=== PATIENT | female | born 1955 | race Caucasian/White ===

== ENCOUNTER 2022-01-25 08:56 | Outpatient (CLI) | payer MEDICAID, SELFPAY ==
--- NOTE | 2022-01-25 09:15 | CRLHL7_ITS ---
For Patients: As a result of the Century Cures Act, medical imaging exams and procedure reports are released immediately into your electronic medical record. You may view this report before your referring provider. If you have questions, please contact your health care provider. INDICATION: CHRONIC PAIN OF LEFT KNEE COMPARISON: None available TECHNIQUE: A duplex venous ultrasound exam was performed of the left lower extremity using stauffer scale imaging, color Doppler and spectral Doppler analysis. Pre- and post compression images were obtained per site specific protocol. The size of the superficial veins were recorded, along with reflux times if applicable. FINDINGS: In the left lower extremity deep venous system, there is normal compressibility, color Doppler venous blood flow and augmentation within the common femoral vein, superficial femoral vein, popliteal vein, and posterior tibial veins. The greater and lesser saphenous veins of the left lower extremity are also patent and compressible with intact color Doppler venous blood flow. The greater saphenous vein measures 0.8 cm at the saphenofemoral junction where it is competent. The greater saphenous vein is competent throughout the thigh and calf. The lesser saphenous vein is competent throughout. The saphenopopliteal junction is identified. Incidental competent rehabilitation liaison veins are present within the mid and proximal calf. IMPRESSION: 1. No deep or superficial venous thrombosis. 2. No venous insufficiency in the left lower extremity. Dictated by Jovanni Dhaliwal MD @ 01/25/2022 10:23:23 AM (Electronically Signed)
== END 2022-01-25 08:57 | disposition home or self-care (01) ==
PROVIDERS: PCP Physician Assistant Medical; Visit Provider Family Medicine
DX: M25.562 Pain in left knee (principal)
CPT/HCPCS: 93971

== ENCOUNTER 2022-02-16 08:30 | Outpatient (RCR) | payer MEDICAID, SELFPAY | END 2022-02-16 10:35 | disposition home or self-care (01) | PROVIDERS: Visit Provider Physician Assistant Medical | DX: M25.562 Pain in left knee (principal); Z51.89 Encounter for other specified aftercare | CPT/HCPCS: 97110; 97112; 97140; 97161 ==

== ENCOUNTER 2023-11-14 22:42 | Observation (INO) | payer MEDICARE, BC, SELFPAY ==
[2023-11-14 22:47] VITALS: BP 190/108; PULSE 86; RESP 18; TEMP 36.2; O2SAT 97; BMI 45.1
--- NOTE | 2023-11-14 23:06 | ED.GENADULT ---
HPI - General Adult General Time Seen by Provider: 02:00 Date Seen: 11/14/23 Chief complaint: Headache/Migraine Stated complaint: nauseous pain on right side of head Time Seen by Provider: 11/14/23 23:06 Source: patient, family and RN notes reviewed Mode of arrival: ambulatory Limitations: no limitations History of Present Illness HPI narrative: Patient is a very pleasant 68-year-old female with a history of normal eye exam earlier today, depression who comes to the emergency room with her daughter for evaluation regarding sudden onset of right-sided headache. Patient has no history of migraines in the past and has not had any recent trauma. At approximately 2130 hours tonight she had the sudden onset of pain in her right denominational and right forehead. It was rated at 10/10 and associated with vomiting and photophobia. Patient notes that since that time pain is now radiating behind her eye onto her right cheek and into her upper neck. She had vomiting here in the ED. she denies history of migraines, recent trauma, recent illnesses. She had been at the eye doctor as she had had redness in her left eye/blood that I believe they are describing as a subconjunctival hemorrhage on October 26. Today was a follow-up day and everything looked okay. She did have her eyes dilated according to family members. She initially describes blurriness of vision both eyes when she arrives but later states that the blurriness is only in her right eye. She denies numbness or tingling of the extremities chest pain shortness of breath recent cough cold or fever. She is not on blood thinners according to her daughter. Patient does have a history of a left mastoid surgery. Her daughter states that she had vertigo and had surgery for that. Do not have any records for her. Review of Systems Status of ROS: Reports: 10 or more systems reviewed and unremarkable except as noted in History and below Narrative: Challenging given language barrier but daughter is very helpful. Const: Denies: fever Eyes: Reports: change in vision, blurry vision and light sensitivity; Denies: blind spots or eye discomfort ENMT: Denies: throat pain Cardio: Denies: chest pain or shortness of breath with exertion Resp: Denies: shortness of breath GI: Reports: nausea and vomiting PFSH PFSH Social History Smoking Status: Never smoker Non-prescribed substance use: denies use service: No Exam Narrative: Exam Narrative: Patient is alert and oriented in significant distress holding her head and complaining of pain. She also is retching occasionally. EOM is full and pupils are equal. Face is symmetrical. Smile is intact. Neck is supple. Heart with a regular rate and rhythm and lungs are clear bilaterally. Abdomen is obese soft nontender. She is moving all of her extremities. After pain medications and CT CTA I do go back for more intense examination. At this time I note that her right pupil is larger than the left. Left pupil is approximately 3.5 mm and constricts to 1.5 mm. Right pupil however is approximately 5 mm. There is a slight reaction with direct light to 4 mm but no indirect response. Did attempt measuring pressures and pressures on the right are 22 repeat 23. Pressure on the left eye is 15. Examination of the fundus notes vessels easily seen. They do not appear to be abnormal. No other abnormalities noted of the optic disc. Attempts at visual calvillo challenging as the patient is sleepy. However we were able to ascertain that she is able to see peripheral fingers and visual calvillo do appear to be intact. Const: Vital Signs, click to edit/add: Vital Signs - 24 hr 11/14/23 22:47 11/15/23 00:09 11/15/23 00:11 Temperature 97.2 F L Pulse Rate 86 80 Pulse Rate [Left P ulse Oximeter] 86 Respiratory Rate 18 Blood Pressure 175/96 H Blood Pressure [Ri ght Upper Arm] 190/108 H Pulse Oximetry 97 92 90 Oxygen Delivery Me od Room Air 11/15/23 00:15 11/15/23 00:16 11/15/23 00:32 Temperature Pulse Rate 84 82 Pulse Rate [Left P ulse Oximeter] Respiratory Rate Blood Pressure 160/94 H 169/100 H Blood Pressure [Ri ght Upper Arm] Pulse Oximetry 91 90 Oxygen Delivery Tn thod 11/15/23 00:47 11/15/23 00:48 11/15/23 01:00 Temperature Pulse Rate 83 83 84 Pulse Rate [Left P ulse Oximeter] Respiratory Rate Blood Pressure 163/93 H Blood Pressure [Ri ght Upper Arm] Pulse Oximetry 99 100 [facility] 01[facility]01 11/15/23 01:15 11/15/23 01:16 Temperature Pulse Rate 85 81 84 Pulse Rate [Left P ulse Oximeter] Respiratory Rate Blood Pressure 173/98 H 159/97 H Blood Pressure [Ri ght Upper Arm] Pulse Oximetry 99 99 99 Oxygen Delivery Me thod 11/15/23 01:17 11/15/23 01:30 11/15/23 01:31 Temperature Pulse Rate 81 85 84 Pulse Rate [Left P ulse Oximeter] Respiratory Rate Blood Pressure 145/84 H Blood Pressure [Ri ght Upper Arm] Pulse Oximetry 99 99 99 Oxygen Delivery Me thod 11/15/23 01:45 11/15/23 01:46 11/15/23 02:00 Temperature Pulse Rate 82 83 81 Pulse Rate [Left P ulse Oximeter] Respiratory Rate Blood Pressure 139/77 Blood Pressure [Ri ght Upper Arm] Pulse Oximetry 99 99 99 Oxygen Delivery Me thod 11/15/23 02:01 11/15/23 02:15 Temperature Pulse Rate 89 79 Pulse Rate [Left P ulse Oximeter] Respiratory Rate Blood Pressure 140/85 H Blood Pressure [Ri ght Upper Arm] Pulse Oximetry 99 99 Oxygen Delivery Me thod Documenting provider has reviewed patient's vital signs: yes Eye: Direct Ophthalmoscopy: photophobia Course Course ED Course: Patient's presentation very concerning for subarachnoid hemorrhage verses carotid dissection. Other possibilities do include glaucoma, stroke, migraine, temporal arteritis. Patient has no globe pain but did note pain behind her eye. We did use my morphine 4 mg Zofran [address] as she was nauseated with significant 10/10 pain. She was able to tolerate CT but continued to vomit and we consequently gave 0.5 mg of Ativan. Unfortunately she continued to have vomiting although her pain was gone. She was given Phenergan 12.5 mg and this seemed to help for a while but now pain has returned. I was able to be in contact with Dr. Fischer neurologist after the initial head CT and then spoke again regarding the persistent vomiting. Dr. Fischer was able to look at the CT herself did not note any abnormalities and felt this was possibly a migraine. Did suggest use of a migraine cocktail such as Toradol Reglan and Benadryl. Given the fact that she has already received Phenergan I have ordered Toradol and Benadryl. She continues to deny any pain at this time. Vital Signs Vital signs: Initial Vital Signs Temperature 97.2 F L 11/14/23 22:47 Temperature Source Temporal Artery Scan 11/14/23 22:47 Pulse Rate 86 11/14/23 22:47 Pulse Rhythm Regular 11/14/23 22:47 Respiratory Rate 18 11/14/23 22:47 Blood Pressure 190/108 H 11/14/23 22:47 Blood Pressure Mean 135 H 11/14/23 22:47 Blood Pressure Position Sitting 11/14/23 22:47 Pulse Oximetry 97 11/14/23 22:47 Oxygen Delivery Method Room Air 11/14/23 22:47 Vital Signs Temperature 97.2 F L 11/14/23 22:47 Pulse Rate 86 11/14/23 22:47 Respiratory Rate 18 11/14/23 22:47 Blood Pressure 190/108 H 11/14/23 22:47 Pulse Oximetry 97 11/14/23 22:47 Oxygen Delivery Method Room Air 11/14/23 22:47 Temperature 97.2 F L 11/14/23 22:47 Pulse Rate 79 11/15/23 02:15 Respiratory Rate 18 11/14/23 22:47 Blood Pressure 140/85 H 11/15/23 02:01 Pulse Oximetry 99 11/15/23 02:15 Oxygen Delivery Method Room Air 11/14/23 22:47 Medications Administered Medications: Discontinued Medications Generic Name Dose Route Start Last Admin Trade Name Freq PRN Reason Stop Dose Admin Diphenhydramine HCl 12.5 mg 11/15/23 01:02 11/15/23 01:03 Diphenhydramine 50 Mg/Ml Inj IVP 11/15/23 01:03 12.5 mg ONCE ONE Administration Ketorolac Tromethamine 15 mg 11/15/23 01:02 11/15/23 01:03 Ketorolac 15 Mg/Ml Inj IVP 11/15/23 01:03 15 mg ONCE ONE Administration Lorazepam 0.5 mg 11/14/23 23:54 11/14/23 23:45 Lorazepam 2 Mg/Ml Inj IVP 11/14/23 23:55 0.5 mg ONCE ONE Administration Morphine Sulfate 4 mg 11/14/23 23:07 11/14/23 23:10 Morphine 4 Mg/Ml Inj IVP 11/14/23 23:08 4 mg ONCE ONE Administration Ondansetron HCl 4 mg 11/14/23 23:07 11/14/23 23:10 Ondansetron 2 Mg/Ml Inj IVP 11/14/23 23:08 4 mg ONCE ONE Administration Promethazine HCl 12.5 mg 11/15/23 00:14 11/15/23 00:15 Promethazine 25 Mg/Ml Inj IVP 11/15/23 00:15 12.5 mg ONCE ONE Administration Medical Decision Making MDM Narrative Medical decision making narrative: 1. Headache-at this time have ruled out subarachnoid hemorrhage, carotid dissection, temporal arteritis as sed rate is 8 and her eye pressures appear to be normal. Patient has received morphine, Benadryl, Zofran, Ativan, Phenergan and fluids. Pain has dissipated at this time. There is no rash on her phase to suggest shingles. 2. Asymmetric pupils-patient noted to have pupil pupil asymmetry not noted when she 1st arrived. In fact pupils appeared to be equal on a quick exam prior to the CT. Pressures appear to be normal at this time. Patient's pain has resolved and thus I do not think we are dealing with glaucoma and she did not have pain in the globe. Neurology suggests overnight monitoring with MR Eli of the brain tomorrow. While challenging to obtain visual calvillo, they are intact. 3. Persistent vomiting-certainly could initially had been secondary to migraine and possibly worsened because of the morphine. Phenergan seems to help the most. Continuing to monitor. Did follow up with Toradol and Benadryl for suspicion of migraine and patient is now resting comfortably. 4. Hypertension-blood pressure initially 190 systolic upon arrival has improved to 139 systolic at this time. 5. Disposition-admit under the care of [facility] hospitalist, Dr. Castillo. Lab Data Lab results reviewed: Yes I reviewed the patient's lab results Labs: Lab Results 11/14/23 11/14/23 Range/Units 23:10 23:55 WBC 7.00 (4.50-11.00) K/uL RBC 4.66 (4.00-5.20) m/uL Hgb 14.2 (12.0-16.0) gm/dL Hct 43.0 (33.0-51.0) % MCV 92 (80-100) fL MCH 31 (26-34) pg MCHC 33 (32-36) gm/dL RDW Coeff of Pamela 11.9 (11.5-15.5) % Plt Count 323 (140-440) K/uL Neut % (Auto) 40.5 L (42.0-72.0) % Lymph % (Auto) 49.1 H (20-44) % Dodge % (Auto) 8.1 (0.0-11.0) % Eos % (Auto) 1.9 (0.0-7.0) % Baso % (Auto) 0.3 (0.0-3.0) % Neut # (Auto) 2.80 (1.7-7.0) K/uL Lymph # (Auto) 3.40 H (0.90-2.90) K/uL Dodge # (Auto) 0.60 (0.00-0.90) K/UL Eos # (Auto) 0.13 (0.00-0.50) K/uL Baso # (Auto) 0.02 (0.00-0.30) K/uL Abs Immat Gran (auto) 0.01 (0.00-0.30) K/uL Imm/Tot Granulo (auto) 0.1 % ESR 8 (2-20) mm/hr INR 0.87 L (0.91-1.10) Sodium 139 (135-149) mmol/L Potassium 3.7 (3.6-5.1) mmol/L Chloride 104 (96-114) mmol/L Carbon Dioxide 26 (20-32) mmol/L Anion Gap 9 (7-15) mEq/L BUN 13 (7-30) mg/dL Creatinine 0.6 (0.5-1.5) mg/dL Estimated Creat Clear 39.75 Estimated GFR 99 ml/min Glucose 130 H (60-115) mg/dL Calcium 9.0 (8.4-10.6) mg/dL Total Bilirubin 0.7 (0.1-1.5) mg/dL AST 31 (12-35) U/L ALT 30 (4-35) U/L Alkaline Phosphatase 154 H (40-150) U/L C-Reactive Protein < 0.5 L (0.5-1.0) mg/dL Total Protein 7.8 (6.0-8.3) g/dL Albumin 4.6 (3.3-5.0) g/dL Lab Acknowledgement Test Added Imaging Data CT scan - head: Attestation: I have reviewed the pertinent imaging results. My impression: I do not note any acute bleeding. Radiologist's impression: Brain: No acute hemorrhage. No acute infarct. No significant mass effect or midline shift. No gross evidence of a mass lesion or cerebral edema. Ventricles: No acute abnormality appreciated. Orbits, sinuses, mastoids: Prior left mastoidectomy with an area of bony loss, possibly dehiscence or postsurgical bunion removal, along the posterior margin of the mastoidectomy bed at the interface with the posterior fossa. Calvarium and soft tissues: No acute abnormality appreciated. Impression: 1. No acute intracranial abnormality appreciated. 2. Note is made of prior left mastoidectomy. There is an apparent area of resected bone or dehiscence between the mastoidectomy bed and the posterior fossa. No prior examination is available for comparison. CT venogra: Attestation: I have reviewed the pertinent imaging results. Radiologist's impression: Diminutive left transverse and sigmoid sinus and jugular vein. No dural venous sinus thrombosis is appreciated. Cavernous sinuses appear grossly symmetric with no evidence of a filling defect. Deep cerebral veins are grossly unremarkable. Impression: No acute deep cerebral venous or dural venous sinus thrombosi CTA neck and head: Attestation: I have reviewed the pertinent imaging results. Radiologist's impression: CTA head: No large vessel occlusion, high-grade stenosis, or aneurysm/pseudoaneurysm. CTA neck: No large vessel occlusion, high-grade stenosis, aneurysm/pseudoaneurysm, or dissection. Critical Care Time Critical Care Time Critical Care Time: Yes Attestation: The patient required my highest level preparedness to intervene emergently and I personally spent this critical care time directly and personally managing the patient. This critical care time included: Obtaining a history; Examining the patient; Pulse oximetry; Ordering and reviewing of studies; Arranging urgent treatment with development of a management plan; Evaluation of patients response to treatment; Frequent reassessment discussions with other providers. This critical care time was performed to assess and manage the high probability of imminent life-threatening deterioration that could result in multiorgan failure. It was exclusive of separate billable procedures and treating other patients and teaching time. Total Critical Care Time in Minutes: 60 Discharge Plan Discharge Clinical Impression: Headache Qualifiers: Headache type: unspecified Headache chronicity pattern: acute headache Intractability: not intractable Qualified Code(s): R51.9 - Headache, unspecified Patient Disposition: Admitted As Observation Condition: Improved
--- NOTE | 2023-11-14 23:07 | CRLHL7_ITS ---
For Patients: As a result of the Century Cures Act, medical imaging exams and procedure reports are released immediately into your electronic medical record. You may view this report before your referring provider. If you have questions, please contact your health care provider. Indication: Sudden headache with vision changes Technique: Noncontrast CT through the head with multiplanar reformats Comparison: None Findings: Brain: No acute hemorrhage. No acute infarct. No significant mass effect or midline shift. No gross evidence of a mass lesion or cerebral edema. Ventricles: No acute abnormality appreciated. Orbits, sinuses, mastoids: Prior left mastoidectomy with an area of bony loss, possibly dehiscence or postsurgical bunion removal, along the posterior margin of the mastoidectomy bed at the interface with the posterior fossa. Calvarium and soft tissues: No acute abnormality appreciated. Impression: 1. No acute intracranial abnormality appreciated. 2. Note is made of prior left mastoidectomy. There is an apparent area of resected bone or dehiscence between the mastoidectomy bed and the posterior fossa. No prior examination is available for comparison. Findings were communicated by telephone to Dr. Hickey at 2330 on 11/14/2023. Please note that all CT scans at this facility use dose modulation, iterative reconstruction, and/or weight-based dosing when appropriate to reduce radiation dose to as low as reasonably achievable. Dictated by Ramos Tan MD @ 11/15/2023 12:48:50 AM (Electronically Signed)
[2023-11-14] MEDS: ONDANSETRON 2 MG/ML inj 4 MG IVP (23:10)
[2023-11-14] MEDS: MORPHINE 4 MG/ML INJ IVP (23:10)
[2023-11-14 23:17] LABS: Basophils Absolute Auto 0.02 K/uL (0.00-0.30); Basophils Percent Auto 0.3 % (0.0-3.0); Eosinophils Absolute Auto 0.13 K/uL (0.00-0.50); Eosinophils Percent Auto 1.9 % (0.0-7.0); Hemoglobin* 14.2 gm/dL (12.0-16.0); Immature Granulocytes Abs Auto 0.01 K/uL (0.00-0.30); Immature Granulocytes Pct Auto 0.1 %; Lymphocytes Percent Auto 49.1 % (20-44); Mean Corpuscular HGB Conc 33 gm/dL (32-36); Mean Corpuscular Hemoglobin 31 pg (26-34); Mean Corpuscular Volume 92 fL (80-100); Monocytes Percent Auto 8.1 % (0.0-11.0); Neutrophils Percent Auto 40.5 % (42.0-72.0); Platelet Count* 323 K/uL (140-440); RDW Coefficient of Variation % 11.9 % (11.5-15.5); Red Blood Count 4.66 m/uL (4.00-5.20)
--- NOTE | 2023-11-14 23:20 | CRLHL7_ITS ---
For Patients: As a result of the Century Cures Act, medical imaging exams and procedure reports are released immediately into your electronic medical record. You may view this report before your referring provider. If you have questions, please contact your health care provider. DATE: 11/15/2023 CLINICAL HISTORY: Patient with headache and neck pain. TECHNIQUE: Standard helical CT image acquisition of the neck up to the skull base after bolus intravenous contrast enhancement. 2D and 3D MIP images for post-processing were performed and interpreted on an independent workstation and 3D images were permanently archived. COMPARISON: CT same day. FINDINGS: The origins of the great vessels from the aortic arch are patent. The origin of the right vertebral artery is patent. The origin of the left vertebral artery is patent. The common carotid arteries are patent. There is no stenosis at the origin of the right internal carotid artery. There is no stenosis at the origin of the left internal carotid artery. The rest of the cervical segments of the internal carotid arteries are patent up to the skull base. The vertebral arteries are codominant. The cervical segments of the vertebral arteries are patent up to the skull base. The visualized lung apices are unremarkable. The thyroid gland is unremarkable. The soft tissues of the neck are unremarkable. There are degenerative changes in the cervical spine. IMPRESSION: Patent cervical vasculature. Please note that all CT scans at this facility use dose modulation, iterative reconstruction, and/or weight-based dosing when appropriate to reduce radiation dose to as low as reasonably achievable. Dictated by Alejandro Peter MD @ 11/15/2023 10:05:40 AM (Electronically Signed)
--- NOTE | 2023-11-14 23:20 | CRLHL7_ITS ---
For Patients: As a result of the Century Cures Act, medical imaging exams and procedure reports are released immediately into your electronic medical record. You may view this report before your referring provider. If you have questions, please contact your health care provider. DATE: 11/15/2023 CLINICAL HISTORY: Patient with headache. TECHNIQUE: Standard helical CT image acquisition through the intracranial circulation following intravenous administration of contrast material with bolus tracking. 2D and 3D MIP images for post-processing were performed and interpreted on an independent workstation and 3D images were permanently archived. COMPARISON: CT same day. FINDINGS: There is no cerebral aneurysm or large vessel occlusion. The right internal carotid artery is normal. The right middle cerebral artery and its branches are normal. The right anterior cerebral artery and its branches are normal. The left internal carotid artery is normal. The left middle cerebral artery and its branches are normal. The left anterior cerebral artery and its branches are normal. The anterior communicating artery is well visualized and appears normal. The right vertebral artery and PICA are normal. The left vertebral artery and PICA are normal. The vertebral arteries are codominant. The basilar artery is patent and appears normal. The right posterior cerebral artery is normal. The left posterior cerebral artery is normal. The visualized venous structures are patent. IMPRESSION: Patent proximal intracranial vasculature without intracranial aneurysms. Please note that all CT scans at this facility use dose modulation, iterative reconstruction, and/or weight-based dosing when appropriate to reduce radiation dose to as low as reasonably achievable. Dictated by Alejandro Peter MD @ 11/15/2023 10:07:39 AM (Electronically Signed)
[2023-11-14 23:24] LABS: Slide Review Reflex No
[2023-11-14 23:26] LABS: Albumin* 4.6 g/dL (3.3-5.0); Chloride* 104 mmol/L (96-114); Potassium* 3.7 mmol/L (3.6-5.1); Sodium* 139 mmol/L (135-149)
--- NOTE | 2023-11-14 23:26 | CRLHL7_ITS ---
For Patients: As a result of the Century Cures Act, medical imaging exams and procedure reports are released immediately into your electronic medical record. You may view this report before your referring provider. If you have questions, please contact your health care provider. Indication: Sudden headache with vision changes Technique: CT venogram through the head after 95 mL Isovue 370 IV contrast Comparison: Same day CT Findings: Diminutive left transverse and sigmoid sinus and jugular vein. No dural venous sinus thrombosis is appreciated. Cavernous sinuses appear grossly symmetric with no evidence of a filling defect. Deep cerebral veins are grossly unremarkable. Impression: No acute deep cerebral venous or dural venous sinus thrombosis. Please note that all CT scans at this facility use dose modulation, iterative reconstruction, and/or weight-based dosing when appropriate to reduce radiation dose to as low as reasonably achievable. Dictated by Ramos Tan MD @ 11/15/2023 12:50:36 AM (Electronically Signed)
[2023-11-14 23:27] LABS: INR 0.87 (0.91-1.10); Prothrombin Time 12.3 Seconds
[2023-11-14 23:28] LABS: Bilirubin Total* 0.7 mg/dL (0.1-1.5); Creatinine* 0.6 mg/dL (0.5-1.5); Est. Creatinine Clearance* 39.75; Estimated Glomerular Filt Rate 99 ml/min
[2023-11-14 23:29] LABS: Alanine Aminotransferase* 30 U/L (4-35); Alkaline Phosphatase* 154 U/L (40-150); Anion Gap 9 mEq/L (7-15); Aspartate Amino Transferase* 31 U/L (12-35); Blood Urea Nitrogen* 13 mg/dL (7-30); Carbon Dioxide* 26 mmol/L (20-32); Glucose* 130 mg/dL (60-115); Total Protein* 7.8 g/dL (6.0-8.3)
[2023-11-14 23:43] LABS: C Reactive Protein* < 0.5 mg/dL (0.5-1.0)
[2023-11-14] MEDS: LORazepam 2 MG/ML inj 0.5 MG IVP (23:45)
--- NOTE | 2023-11-14 23:50 | ED.NURSE ---
pt in CT for scans
[2023-11-15] VITALS (24 sets, daily range): BP systolic 116–175; BP diastolic 66–100; PULSE 79–89; RESP 16–18; TEMP 36.6; O2SAT 90–100
[2023-11-15] MEDS: PROMETHAZINE 25 MG/ML INJ 12.5 MG IVP (00:15)
[2023-11-15 00:43] LABS: Erythrocyte SedimentationRate* 8 mm/hr (2-20)
[2023-11-15] MEDS: diphenhydrAMINE 50 MG/ML inj 12.5 MG IVP (01:03)
[2023-11-15] MEDS: KETOROLAC 15 MG/ML inj IVP (01:03)
--- NOTE | 2023-11-15 02:17 | CRLHL7_ITS ---
For Patients: As a result of the Century Cures Act, medical imaging exams and procedure reports are released immediately into your electronic medical record. You may view this report before your referring provider. If you have questions, please contact your health care provider. INDICATION: Right sided headache. TECHNIQUE: Multiplanar multisequence noncontrast MR images of the brain. COMPARISON: CT brain 11/14/2023. FINDINGS: The ventricles and sulci are within normal limits for patient age. No mass effect or midline shift. Scattered FLAIR hyperintensities in the supratentorial white matter, typical for mild chronic microvascular ischemic changes. No intracranial hemorrhage or pathologic extra-axial fluid collection. No diffusion restriction to suggest acute infarction. The major arterial flow voids at the skullbase are preserved. The globes are symmetric. Mild ethmoid sinus mucosal thickening. Small left mastoid effusion. IMPRESSION: 1. No acute intracranial abnormality. 2. Mild chronic microvascular ischemic changes. Dictated by Samy Chavez MD @ 11/15/2023 12:10:27 PM (Electronically Signed)
--- NOTE | 2023-11-15 02:52 | ED.NURSE ---
RN to RN report given. Pt taken to floor via cart by school bus technician.
--- NOTE | 2023-11-15 04:15 | W.PM.THH&P_ITS ---
Telehealth- H&P: HPI History of Present Illness Time Seen by Provider: 03:22 Date Seen: 11/15/23 Chief complaint: nauseous pain on right side of head Narrative: Magdalene Christopher is seen as an Interactive Telehealth visit. Magdalene Christopher speaking female who was in her normal good state of health until 9:30 in the evening of presentation when she developed sudden right-sided frontal cephalgia radiating down to the right side of her face with associated right eye blurry vision, right eye tearing, nausea and vomiting. She has no prior history of migraines. There was no focal deficits. Incidentally she was seen by an family assessment worker earlier in the day for follow-up for a left eye sclera hematoma and her eyes were dilated at that time during the visit. On arrival to the emergency room there was anisocoria with right eye having a larger pupil than the left. She underwent extensive evaluation in the emergency room with a Kamran-Pen showing intraocular pressures of around 23 in the right eye and 15 in the left eye. She underwent an unenhanced head CT as well as a head and neck CTA that were both unremarkable. She had a normal sed rate. Laboratory evaluation was unremarkable. Blood pressure was elevated on presentation but normalized after symptomatic treatment. She had improvement after treatment with morphine ondansetron and promethazine. Phone consultation was made by the ER doctor, Dr. Robertson, with a neurologist who felt likely diagnosis was migraine. Patient has no prior history of migraines. Patient had anisocoria in the ER and that persists. She is being admitted for further evaluation. PMH L knee osteoarthritios, osteopenia Review of Systems Status of ROS: Reports: 10 or more systems reviewed and unremarkable except as noted in History and below Musculo: Reports: extremity pain (longstanding L knee pain) [facility] Social History (Updated 11/15/23 @ 04:25 by Chano Brown MD) Narrative: , lives alone, strong ffamily support, rare etoh Smoking Status: Never smoker Non-prescribed substance use: denies use service: No Meds Home Medications and Allergies Home Medications ?Medication ?Instructions ?Recorded ?Confirmed ?Type alendronate 70 mg tablet 70 mg PO 11/15/23 History Allergies/Adverse Reaction Comments: unknown allergy to one medicine Exam Narrative Exam Narrative: Physical Exam GENERAL: ?vital signs reviewed. resting comfortable. speech clear. daughter present for translation,interpretation HEENT: pupils right 7mm reactove. L four mm and reactive anisacoria, extraocular movements are grossly within normal limits and oral mucosa is moist. smile symmetric. facial muscles instact NECK: Supple without lymphadenopathy or thyromegaly according to nursing staff examination observation HEART: Regular rate and rhythm without any rubs, murmurs, or gallops. LUNGS: Clear to auscultation bilaterally with good air movement throughout ABDOMEN: Observation from nurse assisted exam, abdomen appears soft, nontender, and nondistended with Positive bowel sounds noted. EXTREMITIES: Strength and sensation is observed to be grossly within normal limits in the upper and lower extremities.? No focal strength deficit is observed. finger nose finger intact. gait not tested SKIN:? Observed warm and dry with color normal Const Vital Signs, click to edit/add: Vital Signs - 24 hr 11/14/23 22:47 11/15/23 00:09 11/15/23 00:11 Temperature 97.2 F L Pulse Rate 86 80 Pulse Rate [Left Pulse Oximeter] 86 Respiratory Rate 18 Blood Pressure 175/96 H Blood Pressure [Right Upper Arm] 190/108 H Pulse Oximetry 97 92 90 Oxygen Delivery Method Room Air Oxygen Flow Rate 11/15/23 00:15 11/15/23 00:16 11/15/23 00:32 Temperature Pulse Rate 84 82 Pulse Rate [Left Pulse Oximeter] Respiratory Rate Blood Pressure 160/94 H 169/100 H Blood Pressure [Right Upper Arm] Pulse Oximetry 91 90 Oxygen Delivery Method Oxygen Flow Rate 11/15/23 00:47 11/15/23 00:48 11/15/23 01:00 Temperature Pulse Rate 83 83 84 Pulse Rate [Left Pulse Oximeter] Respiratory Rate Blood Pressure 163/93 H Blood Pressure [Right Upper Arm] Pulse Oximetry 99 100 99 Oxygen Delivery Method Oxygen Flow Rate 11/15/23 01:00 11/15/23 01:01 11/15/23 01:15 Temperature Pulse Rate 85 81 Pulse Rate [Left Pulse Oximeter] Respiratory Rate Blood Pressure 173/98 H Blood Pressure [Right Upper Arm] Pulse Oximetry 99 99 99 Oxygen Delivery Method Nasal Cannula Oxygen Flow Rate 1 11/15/23 01:16 11/15/23 01:17 11/15/23 01:30 Temperature Pulse Rate 84 81 85 Pulse Rate [Left Pulse Oximeter] Respiratory Rate Blood Pressure 159/97 H Blood Pressure [Right Upper Arm] Pulse Oximetry 99 99 99 Oxygen Delivery Method Oxygen Flow Rate 11/15/23 01:31 11/15/23 01:45 11/15/23 01:46 Temperature Pulse Rate 84 82 83 Pulse Rate [Left Pulse Oximeter] Respiratory Rate Blood Pressure 145/84 H 139/77 Blood Pressure [Right Upper Arm] Pulse Oximetry 99 99 99 Oxygen Delivery Method Oxygen Flow Rate 11/15/23 02:00 11/15/23 02:01 11/15/23 02:15 Temperature Pulse Rate 81 89 79 Pulse Rate [Left Pulse Oximeter] Respiratory Rate Blood Pressure 140/85 H Blood Pressure [Right Upper Arm] Pulse Oximetry 99 99 99 Oxygen Delivery Method Oxygen Flow Rate 11/15/23 02:16 11/15/23 02:30 11/15/23 02:32 Temperature Pulse Rate 82 80 81 Pulse Rate [Left Pulse Oximeter] Respiratory Rate Blood Pressure 143/83 H 129/70 Blood Pressure [Right Upper Arm] Pulse Oximetry 100 99 98 Oxygen Delivery Method Oxygen Flow Rate Hospitalist - H&P: Result Labs Labs: Laboratory Results - last 24 hr 11/14/23 11/14/23 23:10 23:55 WBC 7.00 RBC 4.66 Hgb 14.2 Hct 43.0 MCV 92 MCH 31 MCHC 33 RDW Coeff of Pamela 11.9 Plt Count 323 Neut % (Auto) 40.5 L Lymph % (Auto) 49.1 H Gem % (Auto) 8.1 Eos % (Auto) 1.9 Baso % (Auto) 0.3 Neut # (Auto) 2.80 Lymph # (Auto) 3.40 H Gem # (Auto) 0.60 Eos # (Auto) 0.13 Baso # (Auto) 0.02 Abs Immat Gran (auto) 0.01 Imm/Tot Granulo (auto) 0.1 ESR 8 INR 0.87 L Sodium 139 Potassium 3.7 Chloride 104 Carbon Dioxide 26 Anion Gap 9 BUN 13 Creatinine 0.6 Estimated Creat Clear 39.75 Estimated GFR 99 Glucose 130 H Calcium 9.0 Total Bilirubin 0.7 AST 31 ALT 30 Alkaline Phosphatase 154 H C-Reactive Protein < 0.5 L Total Protein 7.8 Albumin 4.6 Lab Acknowledgement Test Added Imaging CT scan - head: Radiologist's impression: see hpi. negative head ct and head neck cta Assessment and Plan Assessment and plan (1) Anisocoria: Status: Acute (2) Blurry vision, right eye: Status: Acute (3) Headache: Status: Acute Plan 67-year-old female previously healthy until earlier this evening when she developed sudden right sided cephalgia radiating to the right facial area with associated right blurry vision and right eye tearing. Exam remarkable for anisocoria with right pupil larger than the left. There was associated nausea and vomiting. Workup in the emergency room was negative with Kamran-Pen giving right eye pressure is around 20-23 and left eye pressures around 15. Head and neck CTA was negative. Sed rate was normal. As a curious persists but she is feeling much better. My concern for this presentation is highly suggestive of acute angle glaucoma however that is not consistent with the Kamran-Pen intraocular pressure measurements that were obtained. Migraine would seem a diagnosis of exclusion given her not having any prior history of migraines and migraines are unusual onset at this age group. Giant cell arteritis is essentially been ruled out with a sed rate of 8. Problems include: 1. Acute right-sided cephalgia with right-sided anisocoria and tearing 2. Right-sided blurry vision Plan: Admit observation status MRI of the brain in the morning Consider ophthalmologic consultation if patient is not improving. Consider repeat intraocular pressure measurements Symptomatic treatment with morphine and ondansetron CODE STATUS is full DVT prophylaxis not indicated at this point as anticipate early resolution and discharge. Total Time Spent Total Time Spent: 75min Telehealth: Statement Statement Telehealth Visit: Today's History and Physical is provided via interactive telehealth by Chano Brown MD.? Patient is located at [facility].? Provider is located at [facility].? Nursing staff assisted with the patient's exam. The visit being done today meets criteria for a telehealth visit and the patient or patient?s parent/guardian is aware the visit is a telehealth visit. Camera Start Time: 03:23 Camera End Time: 03:58
--- NOTE | 2023-11-15 07:33 | PC.NURSE ---
END OF SHIFT NOTE: PT PLEASANT AND COOPERATIVE. A&Ox3. DENIES CP, SOB, N/V. AMBULATES A1 AND GB. VSS ON RA; AFEBRILE. DJIBOUTIAN SPEAKING; ELIANA GRAHAM INTERPRETING (QUALITY ASSURANCE MONITOR BODY WAIVER SIGNED AND SCANNED IN). C/O HEADACHE BEHIND RIGHT EYE. INITIALLY DIZZY WHEN CHANGING POSITIONS; RECOVERS WITHIN A MINUTE. BLURRED VISION TO RIGHT EYE HAS CONTINUED TO GET BETTER SINCE ADMISSION. CALL LIGHT WITHIN PT?S REACH.?
[2023-11-15] MEDS: SODIUM CHLORIDE 0.9 % (FLUSH) 10 ML SYRINGE 5 ML IVF (10:40)
[2023-11-15] MEDS: diphenhydrAMINE 50 MG/ML inj IVP (10:40)
--- NOTE | 2023-11-15 16:04 | P.DS_ITS ---
DS: Providers Provider Date Seen: 11/15/23 Date of admission: 11/15/23 02:40 Primary care physician: Deann Galindo PA-C Admitting Clinician: Pura Thakur MD Consults: 11/15/23 04:58 Consult to Heart Specialist [CONS] Routine Comment: Reason for Consult:: Mathematics Lecturer Needed Attending Physician on discharge: Sarah Wilkes MD Date of Discharge: 11/15/23 DS: Diagnosis Discharge Diagnosis (1) Anisocoria: Status: Acute Problem details: - resolved upon discharge, presumably 2/2 eye exam prior to admission (2) Blurry vision, right eye: Status: Acute Problem details: - resolved (3) Headache: Status: Acute Problem details: - resolved DS: Summary Hospital Course Hospital Course: Magdalene is a pleasant 68-year-old female who presented to the emergency room on 11/13 with right-sided headache and right-sided blurry vision. She was notably found to have anisocoria; further questioning revealed an parallel computing software engineer visit earlier in the day (with pupil dilation during evaluation). In the emergency room, head CT, head and neck CTA unremarkable. She was seen by stroke Neuro who felt that this was likely a migraine variant. On hospital day 1, MRI unremarkable and TTE had no concerning findings on initial read by technologist (formal cardiology read pending upon discharge.) Patient felt that she was back to baseline and requesting discharge home. She was seen by Stroke Neuro in follow-up exam, who agree and do not recommend any further treatment or workup at this time. She will see PCP and follow-up. Status at Discharge Functional status at discharge: independent ambulation Overall status at discharge: patient is back to baseline Time Spent with Patient Time attestation: Total time spent providing and/or coordinating discharge services: Time spent: Greater than 30 minutes Specific discharge activities: Review of records and studies completed during stay, family updates, medication reconciliation Exam Narrative: Exam Narrative: GEN: Alert and oriented, sitting comfortably in bed HEENT: PERRL and EOMIs bilaterally CV: RRR, No concerning murmurs R: LCTA bilaterally without concerning wheezing, air movement adequate Ext: wwp, no concerning edema Skin: No concerning skin lesions or rashes on exposed skin Neuro: No focal deficits on limited exam, tongue protrudes midline Psych: Appropriate Const: Vital Signs, click to edit/add: Vital Signs - 24 hr 11/14/23 22:47 11/15/23 00:09 11/15/23 00:11 Temperature 97.2 F L Pulse Rate 86 80 Pulse Rate [Left P ulse Oximeter] 86 Pulse Rate [Pulse Oximeter] Respiratory Rate 18 Blood Pressure 175/96 H Blood Pressure [Ri ght Arm] Blood Pressure [Ri ght Upper Arm] 190/108 H Pulse Oximetry 97 92 90 Oxygen Delivery Me thod Room Air Oxygen Flow Rate 11/15/23 00:15 11/15/23 00:16 11/15/23 00:32 Temperature Pulse Rate 84 82 Pulse Rate [Left P ulse Oximeter] Pulse Rate [Pulse Oximeter] Respiratory Rate Blood Pressure 160/94 H 169/100 H Blood Pressure [Ri ght Arm] Blood Pressure [Ri ght Upper Arm] Pulse Oximetry 91 90 Oxygen Delivery Me thod Oxygen Flow Rate 11/15/23 00:47 11/15/23 00:48 11/15/23 01:00 Temperature Pulse Rate 83 83 84 Pulse Rate [Left P ulse Oximeter] Pulse Rate [Pulse Oximeter] Respiratory Rate Blood Pressure 163/93 H Blood Pressure [Ri ght Arm] Blood Pressure [Ri ght Upper Arm] Pulse Oximetry 99 100 99 Oxygen Delivery Me thod Oxygen Flow Rate 11/15/23 01:00 11/15/23 01:01 11/15/23 01:15 Temperature Pulse Rate 85 81 Pulse Rate [Left P ulse Oximeter] Pulse Rate [Pulse Oximeter] Respiratory Rate Blood Pressure 173/98 H Blood Pressure [Ri ght Arm] Blood Pressure [Ri ght Upper Arm] Pulse Oximetry 99 99 99 Oxygen Delivery Me thod Nasal Cannula Oxygen Flow Rate 1 11/15/23 01:16 11/15/23 01:17 11/15/23 01:30 Temperature Pulse Rate 84 81 85 Pulse Rate [Left P ulse Oximeter] Pulse Rate [Pulse Oximeter] Respiratory Rate Blood Pressure 159/97 H Blood Pressure [Ri ght Arm] Blood Pressure [Ri ght Upper Arm] Pulse Oximetry 99 99 99 Oxygen Delivery Me thod Oxygen Flow Rate 11/15/23 01:31 11/15/23 01:45 11/15/23 01:46 Temperature Pulse Rate 84 82 83 Pulse Rate [Left P ulse Oximeter] Pulse Rate [Pulse Oximeter] Respiratory Rate Blood Pressure 145/84 H 139/77 Blood Pressure [Ri ght Arm] Blood Pressure [Ri ght Upper Arm] Pulse Oximetry 99 99 99 Oxygen Delivery Me thod Oxygen Flow Rate 11/15/23 02:00 11/15/23 02:01 11/15/23 02:15 Temperature Pulse Rate 81 89 79 Pulse Rate [Left P ulse Oximeter] Pulse Rate [Pulse Oximeter] Respiratory Rate Blood Pressure 140/85 H Blood Pressure [Ri ght Arm] Blood Pressure [Ri ght Upper Arm] Pulse Oximetry 99 99 99 Oxygen Delivery Me thod Oxygen Flow Rate 11/15/23 02:16 11/15/23 02:30 11/15/23 02:32 Temperature Pulse Rate 82 80 81 Pulse Rate [Left P ulse Oximeter] Pulse Rate [Pulse Oximeter] Respiratory Rate Blood Pressure 143/83 H 129/70 Blood Pressure [Ri ght Arm] Blood Pressure [Ri ght Upper Arm] Pulse Oximetry 100 99 98 Oxygen Delivery Me thod Oxygen Flow Rate 11/15/23 03:00 11/15/23 03:00 11/15/23 05:35 Temperature 97.9 F Pulse Rate Pulse Rate [Left P ulse Oximeter] Pulse Rate [Pulse Oximeter] 80 84 Respiratory Rate 18 18 16 Blood Pressure Blood Pressure [Ri ght Arm] 142/81 H Blood Pressure [Ri ght Upper Arm] Pulse Oximetry 96 96 Oxygen Delivery Me thod Room Air Room Air Oxygen Flow Rate 11/15/23 05:35 Temperature 97.9 F Pulse Rate Pulse Rate [Left P ulse Oximeter] Pulse Rate [Pulse Oximeter] 84 Respiratory Rate 16 Blood Pressure Blood Pressure [Ri ght Arm] 116/66 Blood Pressure [Ri ght Upper Arm] Pulse Oximetry 93 Oxygen Delivery Me thod Room Air Oxygen Flow Rate DS: Data Data Completed and Pending Labs on day of discharge: Labs from last 24 hours 11/14/23 11/14/23 23:55 23:10 WBC 7.00 RBC 4.66 Hgb 14.2 Hct 43.0 MCV 92 MCH 31 MCHC 33 RDW Coeff of Pamela 11.9 Plt Count 323 Neut % (Auto) 40.5 L Lymph % (Auto) 49.1 H Mcduffie % (Auto) 8.1 Eos % (Auto) 1.9 Baso % (Auto) 0.3 Neut # (Auto) 2.80 Lymph # (Auto) 3.40 H Mcduffie # (Auto) 0.60 Eos # (Auto) 0.13 Baso # (Auto) 0.02 Abs Immat Gran (auto) 0.01 Imm/Tot Granulo (auto) 0.1 ESR 8 INR 0.87 L Sodium 139 Potassium 3.7 Chloride 104 Carbon Dioxide 26 Anion Gap 9 BUN 13 Creatinine 0.6 Estimated Creat Clear 39.75 Estimated GFR 99 Glucose 130 H Calcium 9.0 Total Bilirubin 0.7 AST 31 ALT 30 Alkaline Phosphatase 154 H C-Reactive Protein < 0.5 L Total Protein 7.8 Albumin 4.6 Lab Acknowledgement Test Added Discharge Plan Discharge Disposition: Home, Self-Care Date of Admission: 11/15/23 02:40 Attending Provider on Discharge: Sarah Wilkes Primary Care Provider: Deann Galindo Condition: Improved Anticipated Discharge Date/Time: 11/15/23 15:09 Discharge Medications: Continued alendronate 70 mg tablet 70 mg PO QWEEK Discharge Orders: Discharge Order (Routine); Ordered 11/15/23 Ordered By: Sarah Wilkes Patient Education: Alendronate (By mouth) (Fosamax, Binosto), Acute Headache (DC) Activity Level: Activity as Tolerated Discharge Diet: Regular Follow Up Appointments: Deann Galindo PANellieC [Primary Care Provider] - () Chandni Bender MD [Staff Physician] - 11/21/23 10:15 am ([facility] follow up appointment ) Forms: [employer] Info Instructions
--- NOTE | 2023-11-15 19:41 | PC.NURSE ---
Discharge - Pt alert, oriented, cooperative. Korean speaking, using daughter as motor vehicle parts interpreter- pt signed waiver to refuse motor vehicle parts interpreter. Pt up independent in room, continent of bladder. Pt denied pain, blurred vision, nausea/vomiting. Discharge education provided to pt and family, daughter able to translate with pt verbalizing understanding. Pt discharged to home with family member via wheelchair at approximately 1805.
== END 2023-11-15 18:06 | disposition home or self-care (01) ==
LOC: ED 11-15 01:39 → MEDSURG 11-15 02:41
PROVIDERS: Admitting Provider Family Medicine; Emergency Provider Family Medicine; PCP Physician Assistant Medical; Visit Provider Family Medicine
DX: R51.9 Headache, unspecified (principal); H53.8 Other visual disturbances; H57.02 Anisocoria; H53.141 Visual discomfort, right eye; R11.10 Vomiting, unspecified; R11.0 Nausea; M54.2 Cervicalgia; M25.562 Pain in left knee; I10 Essential (primary) hypertension; M17.12 Unilateral primary osteoarthritis, left knee; M85.80 Other specified disorders of bone density and structure, unspecified site
CPT/HCPCS: 36415; 70450; 70460; 70496; 70498; 70551; 80053; 85025; 85610; 85651; 86140; 93306; 96374; 96375; 99284; 99291; G0427; G0378; J1200; J1885; J2060; J2270; J2405; J2550; Q9967

== ENCOUNTER 2024-07-15 08:15 | Outpatient (RCR) | payer MEDICARE, BC, SELFPAY | END 2024-07-15 09:41 | disposition home or self-care (01) | PROVIDERS: PCP Physician Assistant Medical; Visit Provider Family Medicine | DX: M18.11 Unilateral primary osteoarthritis of first carpometacarpal joint, right hand (principal); M65.341 Trigger finger, right ring finger; M17.12 Unilateral primary osteoarthritis, left knee; M79.644 Pain in right finger(s); M25.641 Stiffness of right hand, not elsewhere classified; M25.562 Pain in left knee; M25.561 Pain in right knee; G89.29 Other chronic pain; M54.2 Cervicalgia; M94.0 Chondrocostal junction syndrome [Tietze]; Z51.89 Encounter for other specified aftercare | CPT/HCPCS: 97033; 97035; 97110; 97112; 97140; 97161; 97162; 97166; T1013; L3919; X5282 ==

== ENCOUNTER 2024-12-24 14:30 | Outpatient (RCR) | payer MEDICARE, BC, SELFPAY | END 2025-04-23 23:59 | disposition home or self-care (01) | PROVIDERS: PCP Physician Assistant Medical; Visit Provider Family Medicine | DX: M72.2 Plantar fascial fibromatosis (principal); M76.822 Posterior tibial tendinitis, left leg; Z51.89 Encounter for other specified aftercare | CPT/HCPCS: 97110; 97140; 97161; 97530; T1013 ==